=== PATIENT | female | born 1940 | race Caucasian/White ===

== ENCOUNTER 2017-05-09 17:17 | Observation (INO) | payer MEDICARE ==
[~2017-05-09] VITALS: Ht 154.9 cm; Wt 62.0 kg
[2017-05-09] VITALS (11 sets, daily range): BP systolic 155–204; BP diastolic 73–94; PULSE 81–98; RESP 16–18; TEMP 97.9–98.6; O2SAT 96–99
[~2017-05-09 17:17] MED LIST: ATOR10 PO; CALC-179 PO; MULTCAP20 PO; OMEP20TA PO; OXYB5TAB PO; TAB-TAB PO
[2017-05-09] MEDS ORDERED: MULT1TAB46 PO (17:50)
[2017-05-09] MEDS ORDERED: CALCTAB19 PO (17:50)
[2017-05-09] MEDS ORDERED: TOVI4TAB PO (17:50)
[2017-05-09] MEDS ORDERED: ATOR10TA15 PO (17:50)
[2017-05-09] MEDS ORDERED: RANI150T PO (17:50)
[2017-05-09] MEDS ORDERED: LISI-515 PO (17:50)
[2017-05-09] MEDS ORDERED: ASPI81TA81 PO (17:50)
--- NOTE | 2017-05-09 17:56 | PD ---
HPI Chief Complaint: Chest Pain Time Seen by Provider: 17:53 Travel History International Travel<30 days: No Contact w/Intl Traveler<30days: No Traveled to known affect area: No History of Present Illness HPI 77-year-old female presents to the emergency department for evaluation of 3 episodes of epigastric/chest pain that happened today. Patient states that the episodes were approximately 30-40 minutes apart and lasted 5 minutes each. She states that she can handle pain in the episodes were 10/10. Patient states that she was nauseous and diaphoretic with the episodes. She states that she had this pain quite a long time ago and it was her gallbladder which was removed. Patient denies any fevers or chills. She denies any shortness breath. No vomiting. No diarrhea or constipation. Patient states that the pain is currently gone, but has a slight heaviness. Patient denies any leg edema. No recent travel or surgery. No history DVT or PE. No hemoptysis. She denies any cough or congestion. She denies any recent cardiac catheterization or stress test. She took aspirin 81 mg earlier this morning. Patient states she is currently being treated with ampicillin for UTI. PFSH Past Medical History Hx Anticoagulant Therapy: Yes (ASA) Cancer: No High Cholesterol: Yes Diabetes: No Hepatitis: No Hiatal Hernia: No Hypertension: Yes Medical other: Yes (GERD) Thyroid Disease: No Past Surgical History Abdominal Surgery: Yes (LAP. CATA) Gynecologic Surgery: Yes (HYSTERECTOMY) Hysterectomy: Yes (PARTIAL) Pacemaker: No Social History Alcohol Use: Yes (wine) Tobacco Use: No Substance Use: No Allergies-Medications (Allergen,Severity, Reaction): Coded Allergies: Bactrim (Unverified Allergy, Severe, RASH, 05/09/17) Contrast Media (Unverified Allergy, Severe, RASH, 05/09/17) Tetanus Toxoid (Unverified Allergy, Severe, RASH, 05/09/17) Reported Meds & Prescriptions Reported Meds & Active Scripts Active Reported Aspir-81 (Aspirin) 81 Mg Tabdr 81 Mg PO DAILY Multi Vitamin Daily (Multiple Vitamin) 1 Tab Tab 1 Tab PO DAILY Toviaz ER (Fesoterodine Fumarate) 4 mg Bin 4 Mg PO DAILY Ranitidine (Ranitidine HCl) 150 Mg Tab 150 Mg PO BID Lisinopril 20 Mg Tab 20 Mg PO DAILY Calcium 600+D 200 (Calcium Carbonate-Vitamin D) 600-200 Mg-Unit Tab 1 Tab PO BID Atorvastatin (Atorvastatin Calcium) 10 Mg Tab 10 Mg PO HS Review of Systems Except as stated in HPI: all other systems reviewed are Neg Physical Exam Narrative GENERAL: Well-nourished, well-developed female patient, ambulatory. Afebrile. SKIN: Focused skin assessment warm/dry. HEAD: Normocephalic. Atraumatic. EYES: No scleral icterus. No injection or drainage. NECK: Supple, trachea midline. No JVD or lymphadenopathy. CARDIOVASCULAR: Regular rate and rhythm without murmurs, gallops, or rubs. RESPIRATORY: Breath sounds equal bilaterally. No accessory muscle use. Lungs sounds are clear to auscultation. GASTROINTESTINAL: Abdomen soft, non-tender, nondistended. No reproducible abdominal pain. MUSCULOSKELETAL: No cyanosis, or edema. BACK: Nontender without obvious deformity. No CVA tenderness. Data Data Last Documented VS Vital Signs Date Time Temp Pulse Resp B/P Pulse Ox O2 Delivery O2 Flow Rate FiO2 05/09/17 20:46 81 18 204/85 98 Room Air 05/09/17 17:22 97.9 Orders Electrocardiogram (05/09/17 17:51) Ckmb (Isoenzyme) Profile (05/09/17 17:51) Complete Blood Count With Diff (05/09/17 17:51) Magnesium (Mg) (05/09/17 17:51) Prothrombin Time / Inr (Pt) (05/09/17 17:51) Act Partial Throm Time (Ptt) (05/09/17 17:51) Troponin I (05/09/17 17:51) Lipase (05/09/17 17:51) Chest, Single Ap (05/09/17 17:51) Ecg Monitoring (05/09/17 17:51) Bilateral Bp Monitoring (05/09/17 17:51) Iv Access Insert/Monitor (05/09/17 17:51) Oximetry (05/09/17 17:51) Oxygen Administration (05/09/17 17:51) Aspirin Chew (Aspirin Chew) (05/09/17 18:00) Sodium Chloride 0.9% Flush (Ns Flush) (05/09/17 18:00) Urinalysis - C+S If Indicated (05/09/17 17:57) Comprehensive Metabolic Panel (05/09/17 17:57) Ct Abd/Pel W/O Iv Contrast (05/09/17 19:50) Hydralazine Inj (Apresoline Inj) (05/09/17 21:15) Acetaminophen (Tylenol) (05/09/17 21:15) Labs Laboratory Tests Test 05/09/17 05/09/17 17:57 19:15 White Blood Count 12.4 TH/MM3 Red Blood Count 5.14 MIL/MM3 Hemoglobin 14.1 GM/DL Hematocrit 42.6 % Mean Corpuscular Volume 82.8 FL Mean Corpuscular Hemoglobin 27.4 PG Mean Corpuscular Hemoglobin 33.1 % Concent Red Cell Distribution Width 12.9 % Platelet Count 241 TH/MM3 Mean Platelet Volume 8.5 FL Neutrophils (%) (Auto) 74.4 % Lymphocytes (%) (Auto) 15.3 % Monocytes (%) (Auto) 5.6 % Eosinophils (%) (Auto) 4.4 % Basophils (%) (Auto) 0.3 % Neutrophils # (Auto) 9.3 TH/MM3 Lymphocytes # (Auto) 1.9 TH/MM3 Monocytes # (Auto) 0.7 TH/MM3 Eosinophils # (Auto) 0.6 TH/MM3 Basophils # (Auto) 0.0 TH/MM3 CBC Comment DIFF FINAL Differential Comment Prothrombin Time 10.4 SEC Prothromb Time International 0.9 RATIO Ratio Activated Partial 24.6 SEC Thromboplast Time Sodium Level 140 MEQ/L Potassium Level 4.5 MEQ/L Chloride Level 105 MEQ/L Carbon Dioxide Level 29.2 MEQ/L Anion Gap 6 MEQ/L Blood Urea Nitrogen 21 MG/DL Creatinine 1.06 MG/DL Estimat Glomerular Filtration 50 ML/MIN Rate Random Glucose 105 MG/DL Calcium Level 10.8 MG/DL Magnesium Level 2.1 MG/DL Total Bilirubin 0.6 MG/DL Aspartate Amino Transf 46 U/L (AST/SGOT) Alanine Aminotransferase 38 U/L (ALT/SGPT) Alkaline Phosphatase 72 U/L Total Creatine Kinase 62 U/L Troponin I LESS THAN 0.02 NG/ML Total Protein 7.1 GM/DL Albumin 4.1 GM/DL Lipase 438 U/L Urine Color LIGHT-YELLOW Urine Turbidity CLEAR Urine pH 7.5 Urine Specific [place] 1.007 Urine Protein NEG mg/dL Urine Glucose (UA) NEG mg/dL Urine Ketones NEG mg/dL Urine Occult Blood NEG Urine Nitrite NEG Urine Bilirubin NEG Urine Urobilinogen LESS THAN 2.0 MG/DL Urine Leukocyte Esterase SMALL Urine RBC 1 /hpf Urine WBC 3 /hpf Urine Squamous Epithelial <1 /hpf Cells Microscopic Urinalysis Comment CULT NOT INDICATED MDM Medical Decision Making Medical Screen Exam Complete: Yes Emergency Medical Condition: Yes Medical Record Reviewed: Yes Interpretation(s) Last Impressions Abdomen/Pelvis CT 05/09/17 1950 Signed Impressions: Service Date/Time: Tuesday, May 09, 2017 20:01 - CONCLUSION: 1. Nonobstructive bowel gas pattern. 2. Status post cholecystectomy. Reece Quinteros MD Chest X-Ray 05/09/17 1751 Signed Impressions: Service Date/Time: Tuesday, May 09, 2017 18:23 - CONCLUSION: No acute disease. Reece Quinteros MD Differential Diagnosis ACS versus pancreatitis versus electrolyte abnormality versus pneumonia versus pneumothorax Narrative Course 77-year-old female presents to the emergency department for evaluation of episodes of epigastric/chest pain that happened today. She is currently pain- free. Patient is given aspirin 81 mg by mouth. EKG, CBC, CMP, magnesium, CK, troponin, lipase, PTT, P/INR ordered and pending. Chest x-ray is ordered and pending. EKG shows sinus rhythm, heart rate 92, no acute ST changes. CBC shows leukocytosis 12.4. CMP shows BUN 21, creatinine 1.06, AST is 46. Lipase is 438. Magnesium is 2.1. CK is 62. Troponin is less than 0.02. Coags are unremarkable. UA is negative chest x-ray shows no acute disease. Due to elevated lipase, CT abdomen/pelvis is ordered and pending. CT abdomen/ pelvis shows nonobstructive bowel gas pattern; status post cholecystectomy Patient will be admitted to the [facility] for further evaluation. She verbalizes agreement. Diagnosis Primary Impression: Chest pain Qualified Code: R07.9 - Chest pain, unspecified type Admitting Information Admitting Physician Requests: Observation Marivel Crespo May 09, 2017 17:55
[2017-05-09] MEDS ORDERED: ASPIRIN 81 MG CHEW TAB PO ONE (18:00)
[2017-05-09] MEDS ORDERED: SODIUM CHLORIDE 0.9% FLUSH 10 ML FLUSH IVF PRN (18:00)
[2017-05-09 18:41] LABS: AUTOMATED NEUTROPHIL # 9.3 TH/MM3 (1.8-7.7); BASOPHIL % 0.3 % (0.0-2.0); EOSINOPHIL # 0.6 TH/MM3 (0-0.4); EOSINOPHIL % 4.4 % (0.0-4.0); HEMATOCRIT 42.6 % (35.0-46.0); HEMO FLAGS DIFF FINAL; LYMPH % 15.3 % (9.0-44.0); LYMPHOCYTE # 1.9 TH/MM3 (1.0-4.8); MEAN CELL VOLUME 82.8 FL (80.0-100.0); MEAN CORPUSCULAR HEMOGLOBIN 27.4 PG (27.0-34.0); MEAN CORPUSCULAR HGB CONC 33.1 % (32.0-36.0); MONO % 5.6 % (0.0-8.0); NEUT % 74.4 % (16.0-70.0); PLATELET COUNT 241 TH/MM3 (150-450); RED BLOOD COUNT 5.14 MIL/MM3 (4.00-5.30); RED CELL DISTRIBUTION WIDTH 12.9 % (11.6-17.2); WHITE BLOOD COUNT 12.4 TH/MM3 (4.0-11.0)
--- NOTE | 2017-05-09 18:49 | RADRPT ---
EXAM DATE/TIME: 05/09/2017 18:23 [facility] COMPARISON: No previous studies available for comparison. INDICATIONS : Chest pain starting today MEDICAL HISTORY : None. SURGICAL HISTORY : None. ENCOUNTER: Initial ACUITY: 1 day PAIN SCORE: 2/10 LOCATION: Bilateral chest FINDINGS: A single view of the chest demonstrates the lungs to be symmetrically aerated without evidence of mas s, infiltrate or effusion. The cardiomediastinal contours are unremarkable. Osseous structures are intact. CONCLUSION: No acute disease. Reece Quinteros MD on May 09, 2017 at 18:46 Board Certified Radiologist. This report was verified electronically.
[2017-05-09 18:51] LABS: APTT (PATIENT) 24.6 SEC (24.3-30.1); INTERNATIONAL NORMALIZED RATIO 0.9 RATIO; PROTHROMBIN TIME - PATIENT 10.4 SEC (9.8-11.6)
[2017-05-09 19:14] LABS: MAGNESIUM 2.1 MG/DL (1.5-2.5)
[2017-05-09 19:24] LABS: AST (GOT) 46 U/L (15-37); BLOOD UREA NITROGEN 21 MG/DL (7-18); GLOMERULAR FILTRATION RATE 50 ML/MIN (>89)
[2017-05-09 19:27] LABS: ALKALINE PHOSPHATASE 72 U/L (45-117); TOTAL BILIRUBIN ADULT 0.6 MG/DL (0.2-1.0)
[2017-05-09 19:28] LABS: CREATINE KINASE 62 U/L (26-192)
[2017-05-09 19:32] LABS: CHLORIDE 105 MEQ/L (98-107); POTASSIUM 4.5 MEQ/L (3.5-5.1); SODIUM (NA) 140 MEQ/L (136-145)
[2017-05-09 19:36] LABS: ALT (GPT) 38 U/L (10-53); ANION GAP 6 MEQ/L (5-15); BICARBONATE 29.2 MEQ/L (21.0-32.0)
[2017-05-09 20:07] LABS: BLOOD, URINE NEG (NEG); GLUCOSE,URINE NEG (NEG); KETONE, URINE NEG (NEG); NITRITE,URINE NEG (NEG); PH, URINE 7.5 (5.0-8.5); SQUAMOUS EPITHELIAL CELL URINE <1 /hpf (0-5); URINE COLOR LIGHT-YELLOW (YELLW/STRAW)
[2017-05-09 20:14] LABS: COMMENT (UR) CULT NOT INDICATED; CULTURE IF INDICATED CULT NOT INDICATED
--- NOTE | 2017-05-09 20:26 | RADRPT ---
EXAM DATE/TIME: 05/09/2017 20:01 [facility] COMPARISON: No previous studies available for comparison. INDICATIONS : Diffuse abdomen pain with intermittent chest pain. Radiates to her back. ORAL CONTRAST: No oral contrast ingested. RADIATION DOSE: 9.96 CTDIvol (mGy) MEDICAL HISTORY : Hypertension. GERD SURGICAL HISTORY : Cholecystectomy. Hysterectomy. ENCOUNTER: Initial ACUITY: 1 day PAIN SCALE: 8/10 LOCATION: Bilateral upper quadrant TECHNIQUE: Volumetric scanning of the abdomen and pelvis was performed. Using automated exposure control and ad justment of the mA and/or kV according to patient size, radiation dose was kept as low as reasonably achievable to obtain optimal diagnostic quality images. DICOM format image data is available electro nically for review and comparison. FINDINGS: LOWER LUNGS: The visualized lower lungs are clear. LIVER: Homogeneous density without lesion. There is no dilation of the biliary tree. Status post cholecyste ctomy. SPLEEN: Normal size without lesion. PANCREAS: Within normal limits. KIDNEYS: Normal in size and shape. There is no mass, stone, or hydronephrosis. ADRENAL GLANDS: Within normal limits. VASCULAR: There is no aortic aneurysm. BOWEL/MESENTERY: No oral contrast was given limiting the sensitivity of the exam. The stomach, small bowel, and colon demonstrate no acute abnormality. There is no free intraperitoneal air or fluid. ABDOMINAL WALL: Within normal limits. RETROPERITONEUM: There is no lymphadenopathy. BLADDER: No wall thickening or mass. REPRODUCTIVE: Within normal limits. INGUINAL: There is no lymphadenopathy or hernia. MUSCULOSKELETAL: Within normal limits for patient age. CONCLUSION: 1. Nonobstructive bowel gas pattern. 2. Status post cholecystectomy. Reece Quinteros MD on May 09, 2017 at 20:22 Board Certified Radiologist. This report was verified electronically.
[2017-05-09] MEDS ORDERED: hydrALAZINE HCL 20 MG/ML VIAL IV PUSH ONE (21:15)
[2017-05-09] MEDS ORDERED: SODIUM CHLORIDE 0.9% FLUSH 10 ML FLUSH IV FLUSH PRN (21:15)
[2017-05-09] MEDS ORDERED: ACETAMINOPHEN 325 MG TAB PO ONE (21:15)
[2017-05-09 22:38] LABS: CREATINE KINASE 51 U/L (26-192)
[2017-05-09] MEDS ORDERED: amLODIPine BESYLATE 5 MG TAB PO SCH (23:00)
[2017-05-09] MEDS: LISINOPRIL 20 MG TAB PO SCH (23:41)
[2017-05-10] VITALS (7 sets, daily range): BP systolic 141–153; BP diastolic 64–71; PULSE 69–93; RESP 16–18; TEMP 96.5–97.8; O2SAT 96–98
[2017-05-10 01:14] LABS: CREATINE KINASE 56 U/L (26-192)
--- NOTE | 2017-05-10 07:04 | EKG ---
Date Performed: 05/09/2017 Time Performed: 18:08:05 PTAGE: 77 years EKG: Sinus rhythm NORMAL ECG NO PREVIOUS TRACING DOCTOR: Shayan Robb Interpretating Date/Time 05/10/2017 07:02:40
[2017-05-10] MEDS: LISINOPRIL 20 MG TAB PO SCH ×2 (08:40→09:02)
--- NOTE | 2017-05-10 08:44 | HHI.HP ---
[facility] Primary Care Physician Dr. Ji Chief Complaint Chest pain History of Present Illness 77-year-old female with history of hypertension, hyperlipidemia, and GERD presents to the emergency room for further evaluation chest discomfort. Onset yesterday afternoon approximately 1 hour after eating out. Location epigastric area. Characterized as a deep sharp stabbing pain with radiation to her back. Endorses 3 separate episodes in a 2 hour timeframe. Each episode lasting approximately 5 minutes with associated symptoms of nausea and diaphoresis. States she had a slight headache after first episode. Severity 10/10. After first episode she made herself vomit, emesis was undigested food. After emesis denied dry heaving. No known precipitating or relieving factors. Nonexertional component, she was sitting on computer at time of onset. Denies similar pain in the past. No sensation of tearing or ripping. No palpitations. No dysphagia during episode. No epigastric burning. (Maegan Bains) Review of Systems General: No fatigue,weakness, fever, chills, recent illness, or change in appetite. HEENT: No CANTU, no vision changes, no nasal congestion or drainage, no dysphasia CV: No palpitations, intermittent leg pain, or dizziness RESP: No SOB, cough, wheeze, URI, or history of asthma GI: No nausea, vomiting, bowel changes, diarrhea, constipation, pain, distention , melena, blood in the stool. History of GERD, states GERD is generally " pretty bad if I don't take my medication." : Currently being treated for UTI, Augmentin started 05/02. No dysuria, urgency , frequency, or history of kidney stones. History of frequent UTIs, stating she is usually treated twice yearly for urinary tract infection. EXT: No lower leg edema, no paraesthesias MS: No discomfort or change in ROM NEURO: No difficulty with balance, LOC, motor/sensory deficits. Essential tremors with voluntary movement, her PCP recommended nightly glass of wine to help tremors. She endorses she often forgets to drink recommended wine. PSYCH: No anxiety, depression, or situational stress SKIN: No rashes, no concerning lesions (Maegan Bains) Past Family Social History Allergies: Coded Allergies: Amlodipine (Verified Allergy, Severe, rash, 05/09/17) Bactrim (Unverified Allergy, Severe, RASH, 05/09/17) Contrast Media (Unverified Allergy, Severe, RASH, 05/09/17) Tetanus Toxoid (Unverified Allergy, Severe, RASH, 05/09/17) Past Medical History Hypertension, hyperlipidemia, GERD, essential tremors Past Surgical History Cholecystectomy, hysterectomy Reported Medications Active Reported Aspir-81 (Aspirin) 81 Mg Tabdr 81 Mg PO DAILY Multi Vitamin Daily (Multiple Vitamin) 1 Tab Tab 1 Tab PO DAILY Toviaz ER (Fesoterodine Fumarate) 4 mg Bin 4 Mg PO DAILY Ranitidine (Ranitidine HCl) 150 Mg Tab 150 Mg PO BID Lisinopril 20 Mg Tab 20 Mg PO DAILY Calcium 600+D 200 (Calcium Carbonate-Vitamin D) 600-200 Mg-Unit Tab 1 Tab PO BID Atorvastatin (Atorvastatin Calcium) 10 Mg Tab 10 Mg PO HS Augmentin 875mg BID started on 05/02/17 Active Ordered Medications Current Medications Medications (Trade) Dose Ordered Sig/Traci Route Start Time Stop Time Status Last Admin (Prinivil) 20 mg DAILY PO 05/09/17 23:35 05/10/17 08:40 Family History Noncontributory for early onset cardiovascular disease Social History Known hypertension and hyperlipidemia. No known diabetes or personal coronary artery disease. Lifelong nonsmoker. One glass wine nightly, recommended prior PCP for essential tremors, states she often forgets to drink. Past cardiac testing No formal stress testing. (Maegan Bains) Physical Exam Vital Signs Vital Signs Date Time Temp Pulse Resp B/P Pulse Ox O2 Delivery O2 Flow Rate FiO2 05/10/17 08:10 69 05/10/17 08:00 97.1 78 18 153/71 96 05/10/17 04:00 74 05/10/17 03:40 97.8 76 16 141/64 98 05/10/17 00:05 89 05/09/17 22:52 98 05/09/17 22:24 188/86 05/09/17 22:15 98.6 98 18 97 05/09/17 22:12 20 05/09/17 22:00 96 05/09/17 21:31 90 18 155/73 96 Room Air 05/09/17 21:18 89 18 179/87 99 Room Air 05/09/17 20:46 81 18 204/85 98 Room Air 05/09/17 19:21 81 18 183/90 98 Room Air 05/09/17 18:30 16 98 Room Air 05/09/17 18:10 97 Room Air 05/09/17 18:10 16 97 Room Air 05/09/17 17:22 97.9 89 16 195/94 98 Physical Exam GENERAL: Alert WN, WD, NAD, pleasant, female HEAD: NC, AT EYES: Sclera clear, conjunctiva without injection, pupils equal and round ENT: Mucous membranes pink and moist, no nasal discharge or bleeding NECK: Supple, no masses, trachea midline CV: RRR, 2/6 systolic murmur, no rub, gallop, or JVD, S1-S2 no S3-S4. No carotid bruits. RESP: Clear lungs throughout bilateral, no crackles, wheeze, rhonchi, symmetrical chest rise, nonlabored, able to speak in full sentences ABD: Soft, NT, ND, no masses, positive bowel tones BACK: No CVAT, no scoliosis EXT: Pulses +24, no dependent edema MS: Normal tone 4 extremities, nontender, no obvious deformities, full range of motion NEURO: CN II through CN XII grossly intact, motor strength 5/5, gait WNL PSYCH: A+O 3, pleasant affect, appropriate speech, appropriate mood and affect , insight and judgment SKIN: Normal turgor, normal texture, no lesions, no rashes, brisk cap refill, even hair distribution Laboratory Laboratory Tests Test 05/09/17 05/09/17 05/09/17 05/10/17 17:57 19:15 21:25 00:05 White Blood Count 12.4 Red Blood Count 5.14 Hemoglobin 14.1 Hematocrit 42.6 Mean Corpuscular Volume 82.8 Mean Corpuscular Hemoglobin 27.4 Mean Corpuscular Hemoglobin 33.1 Concent Red Cell Distribution Width 12.9 Platelet Count 241 Mean Platelet Volume 8.5 Neutrophils (%) (Auto) 74.4 Lymphocytes (%) (Auto) 15.3 Monocytes (%) (Auto) 5.6 Eosinophils (%) (Auto) 4.4 Basophils (%) (Auto) 0.3 Neutrophils # (Auto) 9.3 Lymphocytes # (Auto) 1.9 Monocytes # (Auto) 0.7 Eosinophils # (Auto) 0.6 Basophils # (Auto) 0.0 CBC Comment DIFF FINAL Differential Comment Prothrombin Time 10.4 Prothromb Time International 0.9 Ratio Activated Partial 24.6 Thromboplast Time Sodium Level 140 Potassium Level 4.5 Chloride Level 105 Carbon Dioxide Level 29.2 Anion Gap 6 Blood Urea Nitrogen 21 Creatinine 1.06 Estimat Glomerular Filtration 50 Rate Random Glucose 105 Calcium Level 10.8 Magnesium Level 2.1 Total Bilirubin 0.6 Aspartate Amino Transf 46 (AST/SGOT) Alanine Aminotransferase 38 (ALT/SGPT) Alkaline Phosphatase 72 Total Creatine Kinase 62 51 56 Troponin I LESS THAN 0.02 LESS THAN 0.02 LESS THAN 0.02 Total Protein 7.1 Albumin 4.1 Lipase 438 Urine Color LIGHT-YELLOW Urine Turbidity CLEAR Urine pH 7.5 Urine Specific [place] 1.007 Urine Protein NEG Urine Glucose (UA) NEG Urine Ketones NEG Urine Occult Blood NEG Urine Nitrite NEG Urine Bilirubin NEG Urine Urobilinogen LESS THAN 2.0 Urine Leukocyte Esterase SMALL Urine RBC 1 Urine WBC 3 Urine Squamous Epithelial <1 Cells Microscopic Urinalysis Comment CULT NOT INDICATED (Maegan Bains) Result Diagram: 05/09/[id number]/09/[id number] Imaging Last Impressions Abdomen/Pelvis CT 05/09/17 1950 Signed Impressions: Service Date/Time: Tuesday, May 09, 2017 20:01 - CONCLUSION: 1. Nonobstructive bowel gas pattern. 2. Status post cholecystectomy. Reece Quinteros MD Chest X-Ray 05/09/171750 Signed Impressions: Service Date/Time: Tuesday, May 09, 2017 18:23 - CONCLUSION: No acute disease. Reece Quinteros MD Course EKGs 3 EKG normal sinus rhythm, normal axis, no ST or T-segment changes (Maegan Bains) Assessment and Plan Assessment and Plan #1 Atypical chest pain-admitted to chest pain center. Ruled out with serial EKGs and cardiac enzymes. Seen and evaluated by Dr. Dhiraj Casey. Atypical chest pain most likely related to an esophageal spasm, reassurance provided. Will plan for treadmill stress test, naturally if unremarkable will discharge later this afternoon. Patient agreeable to plan of care #2 Hypertension-continue lisinopril. Patient initially hypertensive most likely related to pain. #3 Hyperlipidemia-continue atorvastatin #4 GERD-pain likely related to an esophageal spasm. continue ranitidine. Start Protonix 40 mg daily. Prescription will be provided upon discharge for Protonix 40 mg. Instructed to continue ranitidine for 3 days, in concurrence with Protonix, until stopping ranitidine. Follow up with PCP. Use liberal use of antacids as needed. #5 UTI-resolving, continue Augmentin, follow with PCP as previously instructed ( Maegan Bains) Assessment and Plan Patient seen and examined together. History is as described, three severe episodes of atypical chest pain associated with diaphoresis, N&V, radiating from low mid chest to back, lasting about 5 minutes each. Resolved completely now for a number of hours. Exam confirmatory of that reported with clear lung hylton, NSR without GRM. Abdomen now soft non-tender without masses. labs: mildly elevated Lipase, troponin neg X3 EKG: no acute changes IMPRESSION: CP Atypical for CV Most likely GI prob Esophageal Spasm has RO for dissection HTN Acute elevation probably secondary to pain Needs FU with primary care physician UTI resolving Plan: ETT If neg will disch to FU with PCP (Dhiraj Casey MD) Maegan Bains May 10, 2017 08:44 Dhiraj Casey MD May 10, 2017 09:52
[2017-05-10] MEDS ORDERED: ASPIRIN 325 MG TAB PO SCH (09:00)
[2017-05-10] MEDS ORDERED: LISINOPRIL 20 MG TAB PO SCH (09:00)
[2017-05-10] MEDS ORDERED: ONDANSETRON HCL 4 MG/2 ML VIAL IV PRN (09:00)
[2017-05-10] MEDS ORDERED: NITROGLYCERIN 0.4 MG SL 25 TABS/BTL SL PRN (09:00)
[2017-05-10] MEDS ORDERED: FAMOTIDINE 20 MG TAB PO SCH (09:30)
[2017-05-10] MEDS ORDERED: CALCIUM/VITAMIN D 250 MG/125 U TAB PO SCH (09:30)
[2017-05-10] MEDS ORDERED: MULTIVITAMIN TAB PO SCH (09:30)
[2017-05-10] MEDS ORDERED: AUGM875T3 PO (09:52)
[2017-05-10] MEDS ORDERED: TOLTERODINE TARTRATE 4 MG CAP LA PO SCH (10:00)
[2017-05-10] MEDS ORDERED: PANTOPRAZOLE SOD 40 MG DELAYED RELEASE TAB PO ONE (10:00)
[2017-05-10] MEDS ORDERED: AMOXICILLIN/CLAVULANATE K 875 MG TAB PO SCH (11:00)
[2017-05-10] MEDS ORDERED: PROT40TA PO (11:49)
--- NOTE | 2017-05-10 11:51 | HHI.DCPOC ---
Discharge Care Plan Diagnosis: (1) Atypical chest pain (2) Hypertension (3) Esophageal spasm (4) GERD (gastroesophageal reflux disease) Goals to Promote Your Health * To prevent worsening of your condition and complications * To maintain your health at the optimal level Directions to Meet Your Goals Take your medications as prescribed Follow your dietary instruction Follow activity as directed Keep your appointments as scheduled Take your immunizations and boosters as scheduled If your symptoms worsen call your PCP, if no PCP go to Urgent Care Center or Emergency Room Smoking is Dangerous to Your Health. Avoid second hand smoke Call the 24-hour hour crisis hotline for domestic abuse at Maegan BainsP May 10, 2017 11:51
[2017-05-10] MEDS ORDERED: ATORVASTATIN 10 MG TAB PO SCH (21:00)
--- NOTE | 2017-05-14 07:33 | EKG ---
Date Performed: 05/10/2017 Time Performed: 03:49:33 PTAGE: 77 years EKG: Sinus rhythm NORMAL ECG NO PREVIOUS TRACING DOCTOR: Joe Cevallos Interpretating Date/Time 05/14/2017 07:30:46
--- NOTE | 2017-05-14 07:34 | EKG ---
Date Performed: 05/09/2017 Time Performed: 23:34:22 PTAGE: 77 years EKG: Sinus rhythm NORMAL ECG PREVIOUS TRACING : 05/09/2017 21.28 Since previous tracing, no significant change noted DOCTOR: Joe Cevallos Interpretating Date/Time 05/14/2017 07:30:56
--- NOTE | 2017-05-14 07:34 | EKG ---
Date Performed: 05/09/2017 Time Performed: 21:28:13 PTAGE: 77 years EKG: Sinus rhythm NORMAL ECG PREVIOUS TRACING : 05/09/2017 18.08 Since previous tracing, no significant change noted DOCTOR: Joe Cevallos Interpretating Date/Time 05/14/2017 07:31:06
--- NOTE | 2017-05-14 07:39 | TR ---
Date Performed: 05/10/2017 Time Performed: 11:16:21 DOCTOR: Joe Cevallos DRUG LIST: CLINICAL HISTORY: REASON FOR TEST: Chest pain REASON FOR ENDING: OBSERVATION: CONCLUSION: Vaughn protocol completed. Stopped sec to exceeding target heart rate and leg fatigue . Maximum WW=641 Target HR Achieved=95.0% Maximum SO=576/86 Total Exercise Time=3:02. No reprod chest discomfort. No ectopy. No st t segment changes to sugg ischemia. Fair exercise tolerance. Normal bp response. Recovery quick and unremarkable. COMMENTS: Patient exercised using the Vaughn protocol. No electrocardiographic changes were seen to suggest ischemia. Hemodynamic response to exercise was normal. No significant arrhythmia was prese nt.
== END 2017-05-10 12:25 | disposition home or self-care (01) ==
LOC: NEPE 17:17 → NEDA 21:13 → NEPFCDU 21:57
PROVIDERS: ADMIT Internal Medicine Cardiovascular Disease; ATTEND Internal Medicine Cardiovascular Disease
DX: R07.89 Other chest pain (principal); N39.0 Urinary tract infection, site not specified; K21.9 Gastro-esophageal reflux disease without esophagitis; I10 Essential (primary) hypertension; R11.2 Nausea with vomiting, unspecified; R61 Generalized hyperhidrosis; E78.5 Hyperlipidemia, unspecified; Z79.82 Long term (current) use of aspirin; Z79.899 Other long term (current) drug therapy
CPT/HCPCS: 71010; 74176; 80053; 81001; 82550; 83690; 83735; 84484; 85025; 85610; 85730; 93005; 93017; 96374; 99285; G0378; J0360